=== PATIENT | male | born 1955 | race Caucasian/White ===

== ENCOUNTER 2017-05-16 09:55 | Emergency (ER) | payer MEDICAID ==
[~2017-05-16] VITALS: Ht 177.8 cm; Wt 73.0 kg
[~2017-05-16 09:55] MED LIST: AMPI3VIA IV; ASPI-650 PO; ASPI325T4 PO; ATOR80TA75 PEG; ATOR80TA75 PO; BACL-19 PEG; BACL-19 PO; CEFT1VIA20 IV; CLIN300C93 PO; DIGO125T PO; DIGO250T PO; DOCU-30 PEG; ENOX40SY4 SC; ESCI10TA10 PO; ESCITALOPRAM OXALATE PEG; FAMO20TA7 PEG; FAMO20TA7 PO; FLUT1BLS INH; IPRA3AMP NEB; METH-438 PEG; METH5TAB4 PO; METO25TA35 PEG; METO25TA4 PO; METR500T PO; NYST15CR33 TP; ONDA4VIA4 IVP; SIMV40TA3 PO; TAMS-11 PO; TRAM50TA2 PO; TRIA15CR53 TP; WARF5TAB PO
[2017-05-16] MEDS ORDERED: SODIUM CHLORIDE FLUSH 10ML SYR IVF ONE (10:30)
[2017-05-16 10:51] LABS: ASPARTATE AMINO TRANSFERASE 17 U/L (15-37); BLOOD UREA NITROGEN 22 mg/dL (7-18)
[2017-05-16] MEDS ORDERED: METO25TA35 PO (11:17)
[2017-05-16] MEDS ORDERED: DIGO125T PO (11:17)
[2017-05-16] MEDS ORDERED: ASPI-650 PO (11:17)
[2017-05-16] MEDS ORDERED: WARF5TAB PO (11:17)
[2017-05-16] MEDS ORDERED: METH5TAB12 PO (11:17)
[2017-05-16] MEDS ORDERED: FAMO-79 PO (11:17)
[2017-05-16] MEDS ORDERED: ESCI10TA10 PO (11:17)
[2017-05-16] MEDS ORDERED: CEFTRIAXONE PMX 1GM/50ML 50 ML ONE (12:13)
[2017-05-16] MEDS ORDERED: CEFTRIAXONE PMX 1GM/50ML 50 ML IV ONE (12:30)
[2017-05-16 12:48] VITALS: BP 126/62
== END 2017-05-16 12:51 | disposition home or self-care (01) ==
LOC: ED 10:44
DX: Z46.82 Encounter for fitting and adjustment of non-vascular catheter (principal); N30.01 Acute cystitis with hematuria
CPT/HCPCS: 36415; 51702; 80053; 81001; 83605; 85025; 85610; 87040; 87077; 87086; 96374; 99284; J0696; 87186

== ENCOUNTER 2017-05-23 09:07 | Emergency (ER) | payer MEDICAID ==
[~2017-05-23] VITALS: Ht 177.8 cm; Wt 80.0 kg
[2017-05-23 09:07] VITALS: BP 132/73
[~2017-05-23 09:07] MED LIST changes: +FAMO-79 PO; +METH5TAB12 PO; +METO25TA35 PO
== END 2017-05-23 10:19 | disposition home or self-care (01) ==
LOC: ED 09:58
DX: T83.031A Leakage of indwelling urethral catheter, initial encounter (principal)
CPT/HCPCS: 99283; 99284

== ENCOUNTER → 2017-07-30 | Outpatient (CLI) | payer MEDICAID ==
[~2017-07-30] MED LIST changes: +ASPI325T17 PO; -ASPI325T4 PO; +ATOR-2 PEG; +ATOR-2 PO; -ATOR80TA75 PEG; -ATOR80TA75 PO; +CLIN300C8 PO; -CLIN300C93 PO; +DOCU-131 PEG; -DOCU-30 PEG; +REGADENOSON 0.4 MG/5 ML SYRINGE ONE
== END | disposition home or self-care (01) ==
LOC: CFH 12:05
PROVIDERS: ATTEND Internal Medicine Cardiovascular Disease
DX: I25.9 Chronic ischemic heart disease, unspecified (principal); I70.0 Atherosclerosis of aorta; I08.2 Rheumatic disorders of both aortic and tricuspid valves; I11.9 Hypertensive heart disease without heart failure; I48.0 Paroxysmal atrial fibrillation; E78.5 Hyperlipidemia, unspecified; Z86.73 Personal history of transient ischemic attack (TIA), and cerebral infarction without residual deficits; Z87.891 Personal history of nicotine dependence
CPT/HCPCS: 78452; 93017; 93306; A9502; J2785

== ENCOUNTER 2018-02-17 14:48 | Inpatient (IN) | payer MEDICAID ==
[~2018-02-17] VITALS: Ht 177.8 cm; Wt 79.5 kg
[~2018-02-17 14:48] MED LIST changes: -REGADENOSON 0.4 MG/5 ML SYRINGE ONE
[2018-02-17 15:13] LABS: BASOPHILS # (AUTO) 0.02 x10^3/uL (0-0.1); BASOPHILS % (AUTO) 0 % (0-1); EOSINOPHILS # (AUTO) 0.25 x10^3/uL (0-0.4); EOSINOPHILS % (AUTO) 3 % (1-7); LYMPHOCYTES # (AUTO) 1.24 x10^3/uL (1-3.4); LYMPHOCYTES % (AUTO) 12 % (22-44); MD NO; MEAN CORPUSCULAR HEMOGLOBIN 30.9 pg (27.5-34.5); MEAN CORPUSCULAR HGB CONC 33.6 g/dL (33.2-36.2); MONOCYTES % (AUTO) 5 % (2-9); NEUTROPHILS # (AUTO) 8.13 x10^3/uL (1.8-6.8); NEUTROPHILS % (AUTO) 80 % (42-75); PLATELET COUNT 227 x10^3/uL (130-400); RED BLOOD COUNT 3.85 x10^6/uL (4.38-5.82); RED CELL DISTRIBUTION WIDTH 14.6 % (9.4-14.8)
[2018-02-17 15:20] LABS: ALBUMIN 3.3 g/dL (3.4-5.0); ANION GAP 6 mmol/L (5-15); CALCIUM 8.7 mg/dL (8.5-10.1); CHLORIDE 108 mmol/L (98-107); CREATININE 1.18 mg/dL (0.7-1.3)
[2018-02-17] MEDS ORDERED: CARV12.52 PO (15:24)
[2018-02-17] MEDS ORDERED: ASPI-496 PO (15:24)
[2018-02-17] MEDS ORDERED: LACT1CAP43 PO (15:24)
[2018-02-17 15:37] LABS: PROTHROMBIN TIME 49.9 Seconds (9.6-11.5)
[2018-02-17 15:58] LABS: MICROSCOPIC INDICATED
[2018-02-17 16:04] LABS: CULTURE INDICATED? YES
[2018-02-17] MEDS ORDERED: SODIUM CHLORIDE FLUSH 10ML SYR IVF PRN (16:30)
[2018-02-17] MEDS ORDERED: GENTAMICIN PER PHARMACY MC PRN (16:30)
[2018-02-17] MEDS ORDERED: MORPHINE SULFATE 4 MG/ML, 1ML IVPush PRN (17:00)
[2018-02-17] MEDS ORDERED: GENTAMICIN 380 MG in SODIUM CHLORIDE 0.9% 100 ML IV ONE (17:00)
[2018-02-17] MEDS ORDERED: PHARMACOKINETIC CONSULTATION MC ONE (17:00)
[2018-02-17] MEDS ORDERED: PHARMACOKINETIC MONITORING MC PRN (17:00)
[2018-02-17] MEDS ORDERED: ONDANSETRON ODT 4 MG PO PRN (17:00)
[2018-02-17] MEDS ORDERED: hydrALAzine 20 MG/ML, 1ML IVPush PRN (17:00)
[2018-02-17] MEDS ORDERED: OXYcodone IR 5MG TABLET PO PRN (17:00)
[2018-02-17 19:09] VITALS: BP 114/69
[2018-02-17] MEDS: SODIUM CHLORIDE 0.9% 1,000 ML IV SCH (19:18)
[2018-02-17] MEDS: DIGOXIN 0.125 MG TABLET PO SCH (20:16)
[2018-02-17] MEDS: ATORVASTATIN 80 MG TABLET PEG SCH (20:16)
[2018-02-18 01:07] VITALS: BP 119/76
[2018-02-18] MEDS: SODIUM CHLORIDE 0.9% 1,000 ML IV SCH ×2 (06:05→16:20)
[2018-02-18 06:41] VITALS: BP 102/66
[2018-02-18 07:54] LABS: BASOPHILS # (AUTO) 0.08 x10^3/uL (0-0.1); BASOPHILS % (AUTO) 1 % (0-1); EOSINOPHILS # (AUTO) 0.04 x10^3/uL (0-0.4); EOSINOPHILS % (AUTO) 0 % (1-7); LYMPHOCYTES # (AUTO) 1.43 x10^3/uL (1-3.4); LYMPHOCYTES % (AUTO) 14 % (22-44); MD NO; MEAN CORPUSCULAR HGB CONC 33.7 g/dL (33.2-36.2); MEAN PLATELET VOLUME 7.1 fL (7.4-10.4); MONOCYTES # (AUTO) 0.86 x10^3/uL (0.2-0.8); MONOCYTES % (AUTO) 8 % (2-9); NEUTROPHILS # (AUTO) 7.83 x10^3/uL (1.8-6.8); NEUTROPHILS % (AUTO) 76 % (42-75); PLATELET COUNT 194 x10^3/uL (130-400); RED BLOOD COUNT 3.29 x10^6/uL (4.38-5.82); RED CELL DISTRIBUTION WIDTH 14.8 % (9.4-14.8)
[2018-02-18 08:03] LABS: ALANINE AMINOTRANSFERASE 30 U/L (12-78); ALBUMIN 2.9 g/dL (3.4-5.0); ANION GAP 6 mmol/L (5-15); CALCIUM 8.1 mg/dL (8.5-10.1); CHLORIDE 108 mmol/L (98-107); CREATININE 1.32 mg/dL (0.7-1.3)
[2018-02-18 08:05] LABS: ALKALINE PHOSPHATASE 71 U/L (45-117); BILIRUBIN,TOTAL 1.1 mg/dL (0.2-1.0)
[2018-02-18 08:34] LABS: PROTHROMBIN TIME 20.3 Seconds (9.6-11.5)
[2018-02-18] MEDS: FLUTICASONE/VILANTEROL 200-25MCG/INH INH SCH (09:00)
[2018-02-18] MEDS: FAMOTIDINE 20 MG TABLET PO SCH (09:49)
[2018-02-18] MEDS: LACTOBACILLUS CHEW TABLET PO SCH (09:49)
[2018-02-18] MEDS: CITALOPRAM 20 MG TABLET PO SCH (09:49)
[2018-02-18] MEDS: CARVEDILOL 12.5 MG TABLET PO SCH (09:50)
[2018-02-18] MEDS: TAMSULOSIN 0.4 MG CAP.ER.24H PO SCH (09:50)
[2018-02-18 12:57] VITALS: BP 104/63
[2018-02-18 19:06] VITALS: BP 114/68
[2018-02-18] MEDS: DIGOXIN 0.125 MG TABLET PO SCH (21:30)
[2018-02-18] MEDS: ATORVASTATIN 80 MG TABLET PEG SCH (21:30)
[2018-02-19] MEDS ORDERED: GENTAMICIN 380 MG in SODIUM CHLORIDE 0.9% 100 ML IV SCH
[2018-02-19 01:04] VITALS: BP 124/71
[2018-02-19] MEDS: SODIUM CHLORIDE 0.9% 1,000 ML IV SCH ×3 (01:54→22:49)
[2018-02-19 05:25] LABS: BASOPHILS # (AUTO) 0.01 x10^3/uL (0-0.1); BASOPHILS % (AUTO) 0 % (0-1); EOSINOPHILS # (AUTO) 0.02 x10^3/uL (0-0.4); EOSINOPHILS % (AUTO) 0 % (1-7); LYMPHOCYTES # (AUTO) 1.14 x10^3/uL (1-3.4); LYMPHOCYTES % (AUTO) 11 % (22-44); MD NO; MEAN CORPUSCULAR HEMOGLOBIN 31.5 pg (27.5-34.5); MEAN CORPUSCULAR HGB CONC 33.6 g/dL (33.2-36.2); MEAN CORPUSCULAR VOLUME 93.6 fL (81-97); MEAN PLATELET VOLUME 7.5 fL (7.4-10.4); MONOCYTES # (AUTO) 0.75 x10^3/uL (0.2-0.8); MONOCYTES % (AUTO) 7 % (2-9); NEUTROPHILS # (AUTO) 8.79 x10^3/uL (1.8-6.8); NEUTROPHILS % (AUTO) 82 % (42-75); PLATELET COUNT 166 x10^3/uL (130-400); RED BLOOD COUNT 3.02 x10^6/uL (4.38-5.82); RED CELL DISTRIBUTION WIDTH 14.9 % (9.4-14.8)
[2018-02-19 05:37] LABS: CHLORIDE 109 mmol/L (98-107)
[2018-02-19 05:44] LABS: ANION GAP 8 mmol/L (5-15); CALCIUM 8.2 mg/dL (8.5-10.1); CREATININE 1.64 mg/dL (0.7-1.3)
[2018-02-19 06:58] VITALS: BP 115/64
[2018-02-19] MEDS ORDERED: PHARMACY MAY ADJ FOR RENAL FX MC PRN (09:30)
[2018-02-19] MEDS: LACTOBACILLUS CHEW TABLET PO SCH (10:20)
[2018-02-19] MEDS: FAMOTIDINE 20 MG TABLET PO SCH (10:21)
[2018-02-19] MEDS: CITALOPRAM 20 MG TABLET PO SCH (10:21)
[2018-02-19] MEDS: CARVEDILOL 12.5 MG TABLET PO SCH (10:22)
[2018-02-19] MEDS: TAMSULOSIN 0.4 MG CAP.ER.24H PO SCH (10:22)
[2018-02-19] MEDS: FLUTICASONE/VILANTEROL 200-25MCG/INH INH SCH (11:42)
[2018-02-19 14:10] VITALS: BP 95/60
[2018-02-19 16:14] LABS: INTERNATIONAL NORMALIZED RATIO 1.47 (0.93-1.1)
[2018-02-19 19:22] VITALS: BP 111/66
[2018-02-19] MEDS: ATORVASTATIN 80 MG TABLET PEG SCH (20:50)
[2018-02-19] MEDS: DIGOXIN 0.125 MG TABLET PO SCH (20:50)
[2018-02-20 01:42] VITALS: BP 122/67
[2018-02-20 05:43] LABS: ANION GAP 8 mmol/L (5-15); CHLORIDE 109 mmol/L (98-107); CREATININE 1.46 mg/dL (0.7-1.3)
[2018-02-20 05:44] LABS: BASOPHILS # (AUTO) 0.03 x10^3/uL (0-0.1); BASOPHILS % (AUTO) 0 % (0-1); EOSINOPHILS # (AUTO) 0.06 x10^3/uL (0-0.4); EOSINOPHILS % (AUTO) 1 % (1-7); LYMPHOCYTES % (AUTO) 19 % (22-44); MD NO; MEAN CORPUSCULAR HEMOGLOBIN 31.2 pg (27.5-34.5); MEAN CORPUSCULAR HGB CONC 33.7 g/dL (33.2-36.2); MEAN CORPUSCULAR VOLUME 92.5 fL (81-97); MEAN PLATELET VOLUME 7.4 fL (7.4-10.4); MONOCYTES # (AUTO) 0.84 x10^3/uL (0.2-0.8); MONOCYTES % (AUTO) 11 % (2-9); NEUTROPHILS # (AUTO) 5.55 x10^3/uL (1.8-6.8); NEUTROPHILS % (AUTO) 70 % (42-75); PLATELET COUNT 148 x10^3/uL (130-400); RED BLOOD COUNT 2.74 x10^6/uL (4.38-5.82); RED CELL DISTRIBUTION WIDTH 14.6 % (9.4-14.8)
[2018-02-20 06:14] LABS: INTERNATIONAL NORMALIZED RATIO 1.19 (0.93-1.1); PROTHROMBIN TIME 12.2 Seconds (9.6-11.5)
[2018-02-20 08:15] VITALS: BP 110/63
[2018-02-20] MEDS: FLUTICASONE/VILANTEROL 200-25MCG/INH INH SCH (09:17)
[2018-02-20] MEDS: LACTOBACILLUS CHEW TABLET PO SCH (09:18)
[2018-02-20] MEDS: FAMOTIDINE 20 MG TABLET PO SCH ×2 (09:18→20:13)
[2018-02-20] MEDS: CARVEDILOL 12.5 MG TABLET PO SCH (09:18)
[2018-02-20] MEDS: TAMSULOSIN 0.4 MG CAP.ER.24H PO SCH (09:18)
[2018-02-20] MEDS: CITALOPRAM 20 MG TABLET PO SCH (09:19)
[2018-02-20] MEDS: SODIUM CHLORIDE 0.9% 1,000 ML IV SCH ×2 (09:21→20:13)
[2018-02-20] MEDS: ERTAPENEM 1 GM in SODIUM CHLORIDE 0.9% 50 ML IV SCH (10:33)
[2018-02-20 12:43] VITALS: BP 95/61
[2018-02-20] MEDS ORDERED: WARFARIN 5 MG TABLET PO-COUM ONE (18:00)
[2018-02-20 19:04] VITALS: BP 112/66
[2018-02-20] MEDS: ATORVASTATIN 80 MG TABLET PEG SCH (20:13)
[2018-02-20] MEDS: DIGOXIN 0.125 MG TABLET PO SCH (20:14)
[2018-02-21 03:28] VITALS: BP 105/62
[2018-02-21 05:03] LABS: BASOPHILS # (AUTO) 0.03 x10^3/uL (0-0.1); BASOPHILS % (AUTO) 0 % (0-1); EOSINOPHILS # (AUTO) 0.21 x10^3/uL (0-0.4); EOSINOPHILS % (AUTO) 3 % (1-7); LYMPHOCYTES # (AUTO) 1.27 x10^3/uL (1-3.4); LYMPHOCYTES % (AUTO) 18 % (22-44); MD NO; MEAN CORPUSCULAR HEMOGLOBIN 31.2 pg (27.5-34.5); MEAN CORPUSCULAR HGB CONC 33.8 g/dL (33.2-36.2); MEAN CORPUSCULAR VOLUME 92.5 fL (81-97); MEAN PLATELET VOLUME 7.4 fL (7.4-10.4); MONOCYTES # (AUTO) 0.85 x10^3/uL (0.2-0.8); MONOCYTES % (AUTO) 12 % (2-9); NEUTROPHILS # (AUTO) 4.67 x10^3/uL (1.8-6.8); NEUTROPHILS % (AUTO) 67 % (42-75); PLATELET COUNT 166 x10^3/uL (130-400); RED BLOOD COUNT 2.82 x10^6/uL (4.38-5.82); RED CELL DISTRIBUTION WIDTH 14.8 % (9.4-14.8)
[2018-02-21 05:15] LABS: ANION GAP 4 mmol/L (5-15); CALCIUM 8.1 mg/dL (8.5-10.1); CHLORIDE 112 mmol/L (98-107)
[2018-02-21 05:16] LABS: CREATININE 1.19 mg/dL (0.7-1.3)
[2018-02-21 05:21] LABS: INTERNATIONAL NORMALIZED RATIO 1.11 (0.93-1.1); PROTHROMBIN TIME 11.4 Seconds (9.6-11.5)
[2018-02-21] MEDS: SODIUM CHLORIDE 0.9% 1,000 ML IV SCH (05:33)
[2018-02-21] MEDS: FLUTICASONE/VILANTEROL 200-25MCG/INH INH SCH (09:07)
[2018-02-21] MEDS: CITALOPRAM 20 MG TABLET PO SCH (09:07)
[2018-02-21] MEDS: TAMSULOSIN 0.4 MG CAP.ER.24H PO SCH (09:07)
[2018-02-21] MEDS: LACTOBACILLUS CHEW TABLET PO SCH (09:07)
[2018-02-21] MEDS: FAMOTIDINE 20 MG TABLET PO SCH ×2 (09:07→20:21)
[2018-02-21] MEDS: CARVEDILOL 12.5 MG TABLET PO SCH (09:08)
[2018-02-21] MEDS: ERTAPENEM 1 GM in SODIUM CHLORIDE 0.9% 50 ML IV SCH (10:57)
[2018-02-21 14:19] VITALS: BP 115/70
[2018-02-21] MEDS ORDERED: WARFARIN 5 MG TABLET PO-COUM SCH (18:00)
[2018-02-21 19:12] VITALS: BP 118/66
[2018-02-21] MEDS: DIGOXIN 0.125 MG TABLET PO SCH (20:21)
[2018-02-21] MEDS: ATORVASTATIN 80 MG TABLET PEG SCH (20:21)
[2018-02-22 01:59] VITALS: BP 124/63
[2018-02-22 06:01] LABS: BASOPHILS # (AUTO) 0.03 x10^3/uL (0-0.1); BASOPHILS % (AUTO) 0 % (0-1); EOSINOPHILS # (AUTO) 0.24 x10^3/uL (0-0.4); EOSINOPHILS % (AUTO) 4 % (1-7); LYMPHOCYTES # (AUTO) 1.48 x10^3/uL (1-3.4); LYMPHOCYTES % (AUTO) 22 % (22-44); MD NO; MEAN CORPUSCULAR HEMOGLOBIN 31.1 pg (27.5-34.5); MEAN CORPUSCULAR HGB CONC 33.6 g/dL (33.2-36.2); MEAN CORPUSCULAR VOLUME 92.8 fL (81-97); MEAN PLATELET VOLUME 7.2 fL (7.4-10.4); MONOCYTES % (AUTO) 11 % (2-9); NEUTROPHILS # (AUTO) 4.27 x10^3/uL (1.8-6.8); NEUTROPHILS % (AUTO) 64 % (42-75); PLATELET COUNT 192 x10^3/uL (130-400); RED BLOOD COUNT 2.84 x10^6/uL (4.38-5.82); RED CELL DISTRIBUTION WIDTH 14.2 % (9.4-14.8)
[2018-02-22 06:08] LABS: INTERNATIONAL NORMALIZED RATIO 1.21 (0.93-1.1); PROTHROMBIN TIME 12.4 Seconds (9.6-11.5)
[2018-02-22 06:12] LABS: ANION GAP 7 mmol/L (5-15); CALCIUM 8.4 mg/dL (8.5-10.1); CHLORIDE 110 mmol/L (98-107); CREATININE 1.04 mg/dL (0.7-1.3)
[2018-02-22 07:40] VITALS: BP 123/71
[2018-02-22] MEDS: FLUTICASONE/VILANTEROL 200-25MCG/INH INH SCH (10:33)
[2018-02-22] MEDS: ERTAPENEM 1 GM in SODIUM CHLORIDE 0.9% 50 ML IV SCH (10:33)
[2018-02-22] MEDS: CITALOPRAM 20 MG TABLET PO SCH (10:33)
[2018-02-22] MEDS: TAMSULOSIN 0.4 MG CAP.ER.24H PO SCH (10:34)
[2018-02-22] MEDS: LACTOBACILLUS CHEW TABLET PO SCH (10:34)
[2018-02-22] MEDS: CARVEDILOL 12.5 MG TABLET PO SCH (10:34)
[2018-02-22] MEDS: FAMOTIDINE 20 MG TABLET PO SCH ×2 (10:34→20:17)
[2018-02-22 15:47] VITALS: BP 126/72
[2018-02-22] MEDS ORDERED: WARFARIN 7.5 MG TABLET PO-COUM SCH (18:00)
[2018-02-22 18:53] VITALS: BP 108/65
[2018-02-22] MEDS: ATORVASTATIN 80 MG TABLET PEG SCH (20:17)
[2018-02-22] MEDS: DIGOXIN 0.125 MG TABLET PO SCH (20:17)
[2018-02-23 01:25] VITALS: BP 94/64
[2018-02-23 05:50] LABS: INTERNATIONAL NORMALIZED RATIO 1.1 (0.93-1.1); PROTHROMBIN TIME 11.3 Seconds (9.6-11.5)
[2018-02-23 05:56] LABS: BASOPHILS # (AUTO) 0.03 x10^3/uL (0-0.1); BASOPHILS % (AUTO) 1 % (0-1); EOSINOPHILS # (AUTO) 0.24 x10^3/uL (0-0.4); EOSINOPHILS % (AUTO) 4 % (1-7); LYMPHOCYTES # (AUTO) 1.51 x10^3/uL (1-3.4); LYMPHOCYTES % (AUTO) 22 % (22-44); MD NO; MEAN CORPUSCULAR HEMOGLOBIN 31.3 pg (27.5-34.5); MEAN CORPUSCULAR HGB CONC 33.8 g/dL (33.2-36.2); MEAN CORPUSCULAR VOLUME 92.7 fL (81-97); MEAN PLATELET VOLUME 7.4 fL (7.4-10.4); MONOCYTES # (AUTO) 0.59 x10^3/uL (0.2-0.8); MONOCYTES % (AUTO) 9 % (2-9); NEUTROPHILS # (AUTO) 4.52 x10^3/uL (1.8-6.8); NEUTROPHILS % (AUTO) 66 % (42-75); PLATELET COUNT 213 x10^3/uL (130-400); RED BLOOD COUNT 2.92 x10^6/uL (4.38-5.82); RED CELL DISTRIBUTION WIDTH 14.5 % (9.4-14.8)
[2018-02-23 07:30] VITALS: BP 88/36
[2018-02-23] MEDS: CARVEDILOL 12.5 MG TABLET PO SCH (09:00)
[2018-02-23 09:25] VITALS: BP 99/62
[2018-02-23] MEDS: FAMOTIDINE 20 MG TABLET PO SCH ×2 (10:02→20:38)
[2018-02-23] MEDS: TAMSULOSIN 0.4 MG CAP.ER.24H PO SCH (10:02)
[2018-02-23] MEDS: CITALOPRAM 20 MG TABLET PO SCH (10:02)
[2018-02-23] MEDS: ASPIRIN 81 MG TABLET EC PO SCH (10:02)
[2018-02-23] MEDS: LACTOBACILLUS CHEW TABLET PO SCH (10:02)
[2018-02-23] MEDS: FLUTICASONE/VILANTEROL 200-25MCG/INH INH SCH (10:07)
[2018-02-23] MEDS: ERTAPENEM 1 GM IM SCH (11:32)
[2018-02-23 12:40] VITALS: BP 111/67
[2018-02-23 18:28] VITALS: BP 111/72
[2018-02-23] MEDS: ATORVASTATIN 80 MG TABLET PEG SCH (20:38)
[2018-02-23] MEDS: DIGOXIN 0.125 MG TABLET PO SCH (20:38)
[2018-02-24 01:15] VITALS: BP 112/73
[2018-02-24 08:56] LABS: INTERNATIONAL NORMALIZED RATIO 1.06 (0.93-1.1); PROTHROMBIN TIME 10.9 Seconds (9.6-11.5)
[2018-02-24 08:57] VITALS: BP 123/73
[2018-02-24] MEDS: ASPIRIN 81 MG TABLET EC PO SCH (09:40)
[2018-02-24] MEDS: FAMOTIDINE 20 MG TABLET PO SCH (09:40)
[2018-02-24] MEDS: TAMSULOSIN 0.4 MG CAP.ER.24H PO SCH (09:40)
[2018-02-24] MEDS: CITALOPRAM 20 MG TABLET PO SCH (09:40)
[2018-02-24] MEDS: LACTOBACILLUS CHEW TABLET PO SCH (09:40)
[2018-02-24] MEDS: CARVEDILOL 12.5 MG TABLET PO SCH (09:42)
[2018-02-24] MEDS: FLUTICASONE/VILANTEROL 200-25MCG/INH INH SCH (09:44)
[2018-02-24] MEDS: ERTAPENEM 1 GM IM SCH (09:47)
== END 2018-02-24 12:15 | disposition home or self-care (01) | DRG 813 ==
LOC: SUATTDRO 16:22 → ED 16:23 → EDIP 16:41 → 3NE 17:44
PROVIDERS: ADMIT Internal Medicine; ATTEND Internal Medicine
PROC: 02HV33Z Insertion of Infusion Device into Superior Vena Cava, Percutaneous Approach (ICD-10-PCS; principal; 2018-02-21)
PROC: B548ZZA Ultrasonography of Superior Vena Cava, Guidance (ICD-10-PCS; 2018-02-21)
DX: D68.32 Hemorrhagic disorder due to extrinsic circulating anticoagulants (principal); D68.69 Other thrombophilia; E11.51 Type 2 diabetes mellitus with diabetic peripheral angiopathy without gangrene; I69.351 Hemiplegia and hemiparesis following cerebral infarction affecting right dominant side; R47.01 Aphasia; I48.91 Unspecified atrial fibrillation; Z93.1 Gastrostomy status; N39.0 Urinary tract infection, site not specified; D50.0 Iron deficiency anemia secondary to blood loss (chronic); K21.9 Gastro-esophageal reflux disease without esophagitis; N40.0 Benign prostatic hyperplasia without lower urinary tract symptoms; T45.515A Adverse effect of anticoagulants, initial encounter; J44.9 Chronic obstructive pulmonary disease, unspecified; E78.5 Hyperlipidemia, unspecified; F32.9 Major depressive disorder, single episode, unspecified; Z16.12 Extended spectrum beta lactamase (ESBL) resistance; R31.0 Gross hematuria; Z16.24 Resistance to multiple antibiotics; Z79.01 Long term (current) use of anticoagulants; Z86.14 Personal history of Methicillin resistant Staphylococcus aureus infection; Z87.891 Personal history of nicotine dependence; Z99.3 Dependence on wheelchair; Z88.5 Allergy status to narcotic agent; Y92.89 Other specified places as the place of occurrence of the external cause
CPT/HCPCS: 36415; 36569; 76770; 76937; 77001; 80048; 80053; 80170; 81001; 82040; 83735; 84100; 85025; 85610; 85730; 87040; 87077; 87086; 87186; 99285; J1335; C1751; J1580; J7030

== ENCOUNTER 2019-04-07 10:53 | Outpatient (CLI) | payer MEDICAID, MEDICARE ==
[~2019-04-07 10:53] MED LIST changes: +ASPI-496 PO; +CARV12.52 PO; -IPRA3AMP NEB; +IPRA3AMP30 NEB; +LACT1CAP43 PO; -ONDA4VIA4 IVP; +ONDA4VIA60 IVP
[2019-04-07] MEDS ORDERED: OMNIPAQUE 350 MG/ML, 150 ML BOTTLE ONE (15:12)
== END 2019-04-07 23:59 | disposition home or self-care (01) ==
LOC: CFH 10:53
PROVIDERS: ATTEND Urology
DX: N28.1 Cyst of kidney, acquired (principal); I71.4 Abdominal aortic aneurysm, without rupture; I72.3 Aneurysm of iliac artery; K80.20 Calculus of gallbladder without cholecystitis without obstruction; Z87.448 Personal history of other diseases of urinary system
CPT/HCPCS: 74178; 82565; Q9967

== ENCOUNTER → 2019-05-27 | Outpatient (CLI) | payer MEDICARE, MEDICAID ==
[~2019-05-27] MED LIST changes: +ACET-1600 PO; +APIX5TAB PO; +CALC-55 PO; +CHOL200024 PO; +FINA5TAB4 PO; +MULT80TA PO; +NITR100C PO; +UMEC1DIS INH
== END | disposition home or self-care (01) ==
LOC: CFH 11:15
PROVIDERS: ATTEND Urology
DX: N21.0 Calculus in bladder (principal)
CPT/HCPCS: 74018

== ENCOUNTER 2019-05-28 11:50 | Outpatient (CLI) | payer MEDICARE, MEDICAID ==
[2019-05-14 10:43] VITALS: BP 138/76
[~2019-05-28] VITALS: Ht 179.1 cm; Wt 89.0 kg
[2019-05-28] MEDS ORDERED: LACTATED RINGERS 1,000 ML IV SCH (13:25)
[2019-05-28 13:31] VITALS: BP 138/76
[2019-05-28 13:33] VITALS: BP 138/76
[2019-05-28 14:16] LABS: MICROSCOPIC INDICATED
[2019-05-28 14:18] LABS: CULTURE INDICATED? YES
[2019-05-28 14:19] LABS: BASOPHILS # (AUTO) 0.03 x10^3/uL (0-0.1); BASOPHILS % (AUTO) 0 % (0-1); EOSINOPHILS % (AUTO) 3 % (1-7); LYMPHOCYTES # (AUTO) 2.16 x10^3/uL (1-3.4); LYMPHOCYTES % (AUTO) 29 % (22-44); MD NO; MEAN CORPUSCULAR HEMOGLOBIN 31.5 pg (27.5-34.5); MEAN CORPUSCULAR HGB CONC 32.8 g/dL (33.2-36.2); MEAN CORPUSCULAR VOLUME 96.2 fL (81-97); MEAN PLATELET VOLUME 7.6 fL (7.4-10.4); MONOCYTES % (AUTO) 8 % (2-9); NEUTROPHILS % (AUTO) 60 % (42-75); PLATELET COUNT 184 x10^3/uL (130-400); RED BLOOD COUNT 4.87 x10^6/uL (4.38-5.82)
[2019-05-28 14:25] LABS: ANION GAP 8 mmol/L (5-15); CALCIUM 9.4 mg/dL (8.5-10.1); CHLORIDE 109 mmol/L (98-107); CREATININE 1.21 mg/dL (0.7-1.3)
== END 2019-05-28 23:59 | disposition home or self-care (01) ==
LOC: OUT 11:50 → EDSTATUS 16:30 → OUT 23:59
PROVIDERS: ATTEND Urology
DX: N21.0 Calculus in bladder (principal); Z53.8 Procedure and treatment not carried out for other reasons; N40.1 Benign prostatic hyperplasia with lower urinary tract symptoms; I48.0 Paroxysmal atrial fibrillation; J44.9 Chronic obstructive pulmonary disease, unspecified; Z79.82 Long term (current) use of aspirin; Z79.01 Long term (current) use of anticoagulants; Z79.899 Other long term (current) drug therapy; Z87.891 Personal history of nicotine dependence; Z88.8 Allergy status to other drugs, medicaments and biological substances; Z82.49 Family history of ischemic heart disease and other diseases of the circulatory system
CPT/HCPCS: 36415; 80048; 81001; 85025; 87077; 87086; 87186; 93005; J7120

== ENCOUNTER 2019-06-11 10:53 | Outpatient (CLI) | payer MEDICARE, MEDICAID | END 2019-06-11 23:59 | disposition home or self-care (01) | LOC: CFH 10:53 | PROVIDERS: ATTEND Urology | DX: N21.0 Calculus in bladder (principal) | CPT/HCPCS: 74018 ==

== ENCOUNTER 2019-09-29 16:15 | Inpatient (IN) | payer MEDICARE, MEDICAID ==
[~2019-09-29] VITALS: Ht 179.1 cm; Wt 98.1 kg
[~2019-09-29 16:15] MED LIST changes: +ACET1TAB52 PO; +CARV6.252 PO; +EZET10TA70 PO; +GABA300C10 PO
[2019-09-29 16:42] VITALS: BP 161/83
[2019-09-29 17:10] LABS: BASOPHILS # (AUTO) 0.03 x10^3/uL (0-0.1); BASOPHILS % (AUTO) 1 % (0-1); EOSINOPHILS # (AUTO) 0.38 x10^3/uL (0-0.4); EOSINOPHILS % (AUTO) 6 % (1-7); LYMPHOCYTES # (AUTO) 2.02 x10^3/uL (1-3.4); LYMPHOCYTES % (AUTO) 29 % (22-44); MD NO; MEAN CORPUSCULAR HEMOGLOBIN 31.8 pg (27.5-34.5); MEAN CORPUSCULAR HGB CONC 32.5 g/dL (33.2-36.2); MEAN CORPUSCULAR VOLUME 98.1 fL (81-97); MEAN PLATELET VOLUME 7.3 fL (7.4-10.4); MONOCYTES # (AUTO) 0.67 x10^3/uL (0.2-0.8); MONOCYTES % (AUTO) 10 % (2-9); NEUTROPHILS % (AUTO) 56 % (42-75); PLATELET COUNT 214 x10^3/uL (130-400); RED BLOOD COUNT 4.84 x10^6/uL (4.38-5.82); RED CELL DISTRIBUTION WIDTH 13.8 % (9.4-14.8)
[2019-09-29 17:17] LABS: ANION GAP 4 mmol/L (5-15); CALCIUM 9.2 mg/dL (8.5-10.1); CHLORIDE 111 mmol/L (98-107); CREATININE 1.16 mg/dL (0.7-1.3)
[2019-09-29] MEDS ORDERED: AMIKACIN PER PHARMACY MC PRN (17:30)
[2019-09-29] MEDS: ALBUTEROL/IPRATROPIUM 2.5MG/0.5MG, 3 ML NPPB SCH ×2 (17:30→22:00)
[2019-09-29] MEDS ORDERED: PHARMACOKINETIC MONITORING MC PRN (17:30)
[2019-09-29] MEDS ORDERED: AMIKACIN IV ONE (17:30)
[2019-09-29] MEDS ORDERED: PHARMACOKINETIC CONSULTATION MC ONE (17:30)
[2019-09-29] MEDS ORDERED: SODIUM CHLORIDE 0.9% IV ONE (17:30)
[2019-09-29 20:23] VITALS: BP 162/83
[2019-09-29] MEDS: ATORVASTATIN 80 MG TABLET PO SCH (20:29)
[2019-09-29] MEDS: TEMAZEPAM 30 MG CAPSULE PO SCH (21:28)
[2019-09-30 02:16] VITALS: BP 154/82
[2019-09-30] MEDS: ALBUTEROL/IPRATROPIUM 2.5MG/0.5MG, 3 ML NPPB SCH ×5 (03:03→20:25)
[2019-09-30 04:55] LABS: CULTURE INDICATED? YES; MICROSCOPIC INDICATED
[2019-09-30 06:36] LABS: CREATININE 1.17 mg/dL (0.7-1.3)
[2019-09-30 07:32] VITALS: BP 159/80
[2019-09-30] MEDS: GABAPENTIN 300 MG CAPSULE PO SCH (09:00)
[2019-09-30] MEDS: EZETIMIBE 10 MG TABLET PO SCH (09:00)
[2019-09-30] MEDS: CARVEDILOL 6.25 MG TABLET PO SCH (09:40)
[2019-09-30 13:48] VITALS: BP 157/79
[2019-09-30] MEDS ORDERED: AMIKACIN IV SCH (18:00)
[2019-09-30] MEDS ORDERED: SODIUM CHLORIDE 0.9% IV SCH (18:00)
[2019-09-30 18:43] VITALS: BP 164/80
[2019-09-30] MEDS: ATORVASTATIN 80 MG TABLET PO SCH (20:12)
[2019-09-30] MEDS: TEMAZEPAM 30 MG CAPSULE PO SCH (20:12)
[2019-10-01 00:59] VITALS: BP 130/84
[2019-10-01] MEDS: ALBUTEROL/IPRATROPIUM 2.5MG/0.5MG, 3 ML NPPB SCH ×3 (02:30→14:50)
[2019-10-01 07:31] VITALS: BP 144/86
[2019-10-01] MEDS: CARVEDILOL 6.25 MG TABLET PO SCH (07:53)
[2019-10-01] MEDS: GABAPENTIN 300 MG CAPSULE PO SCH (07:54)
[2019-10-01] MEDS: EZETIMIBE 10 MG TABLET PO SCH (07:56)
[2019-10-01] MEDS ORDERED: PROPOFOL 10 MG/ML, 50ML ONE (12:44)
[2019-10-01] MEDS ORDERED: FENTANYL PF 100 MCG/2ML ONE (12:44)
[2019-10-01] MEDS ORDERED: FENTANYL PF 100 MCG/2ML IV PRN (13:30)
[2019-10-01] MEDS ORDERED: MIDAZOLAM 1 MG/ML, 2ML IV PRN (13:30)
[2019-10-01] MEDS ORDERED: DIPHENHYDRAMINE 50 MG/ML, 1ML IVPush PRN (13:30)
[2019-10-01] MEDS ORDERED: EPHEDRINE 50 MG/ML, 1ML IM PRN (13:30)
[2019-10-01] MEDS ORDERED: ONDANSETRON ODT 8 MG PO PRN (13:30)
[2019-10-01] MEDS ORDERED: OXYcodone 5 MG/5 ML ORAL.SOL UDC PO PRN (13:30)
[2019-10-01] MEDS ORDERED: EPHEDRINE 50 MG/ML, 1ML IVPush PRN (13:30)
[2019-10-01] MEDS ORDERED: MORPHINE SULFATE 4 MG/ML, 1ML IVPush PRN (13:30)
[2019-10-01] MEDS ORDERED: PROMETHAZINE 25 MG/ML, 1ML IV PRN (13:30)
[2019-10-01] MEDS ORDERED: ONDANSETRON 2MG/ML, 2ML IV PRN (13:30)
[2019-10-01] MEDS ORDERED: EPHEDRINE 50 MG/ML, 1ML ONE (13:47)
[2019-10-01] MEDS ORDERED: AMOX-291 PO (15:13)
[2019-10-01] MEDS ORDERED: GABAPENTIN 300 MG CAPSULE PO SCH (16:00)
[2019-10-01] MEDS ORDERED: EZETIMIBE 10 MG TABLET PO SCH (21:00)
[2019-10-01] MEDS ORDERED: APIXABAN 5 MG TABLET PO SCH (21:00)
[2019-10-01] MEDS ORDERED: CARVEDILOL 6.25 MG TABLET PO SCH (21:00)
[2019-10-01] MEDS ORDERED: ATORVASTATIN 80 MG TABLET PO SCH (21:00)
[2019-10-01] MEDS ORDERED: ACETAMINOPHEN 500 MG TABLET PO SCH (21:00)
[2019-10-02] MEDS ORDERED: FINASTERIDE 5 MG TABLET PO SCH (09:00)
== END 2019-10-01 15:40 | disposition home or self-care (01) | DRG 694 ==
LOC: 4NE 16:15
PROVIDERS: ADMIT Urology; ATTEND Urology
PROC: 0TCC8ZZ Extirpation of Matter from Bladder Neck, Via Natural or Artificial Opening Endoscopic (ICD-10-PCS; principal; 2019-10-01 12:00)
DX: N21.0 Calculus in bladder (principal); G81.91 Hemiplegia, unspecified affecting right dominant side; N39.0 Urinary tract infection, site not specified; Z88.6 Allergy status to analgesic agent; Z88.8 Allergy status to other drugs, medicaments and biological substances; Z87.891 Personal history of nicotine dependence; F80.1 Expressive language disorder
CPT/HCPCS: 36415; 80048; 80053; 80150; 81001; 82360; 82565; 85025; 87077; 87086; 87186; 88300; 93005; 94640; C2630; G0378; J0278; J2704; J3010; J7620